=== PATIENT | female | born 1950 | race Caucasian/White ===

== ENCOUNTER 2024-05-16 14:12 | Outpatient (CLI) | payer MEDICARE, SELFPAY ==
--- NOTE | ~2024-05-16 | XR_ITS ---
EXAMINATION: XR knee RT 3V DATE: 05/16/2024 16:00 INDICATION: Right knee pain. TECHNIQUE: 3 views of right knee were obtained. COMPARISON: None. FINDINGS: Alignment is normal. No fracture. There is mild osteoarthritis of medial and patellofemoral compartments. No knee joint effusion. IMPRESSION: 1. Mild right knee osteoarthritis. Reviewed, dictated and finalized at location B. IGHT EDGER
== END 2024-05-16 14:13 | disposition home or self-care (01) ==
LOC: GOSHIMG 14:13
PROVIDERS: PCP Nurse Practitioner; Visit Provider Nurse Practitioner
DX: M17.11 Unilateral primary osteoarthritis, right knee (principal)
CPT/HCPCS: 73562

== ENCOUNTER 2024-07-02 10:00 | Outpatient (CLI) | payer MEDICARE, SELFPAY ==
--- NOTE | ~2024-07-02 | US_ITS ---
EXAMINATION: US thyroid DATE: 07/02/2024 10:14 INDICATION: Hypothyroidism, unspecified. TECHNIQUE: Multiple ultrasound images of the thyroid were obtained. COMPARISON: None. FINDINGS: The right thyroid lobe measures 5.1 x 2.3 x 1.8 cm. The left thyroid lobe measures 4.7 x 2.4 x 2.4 c m. The thyroid demonstrates heterogeneous echogenicity and increased vascularity. In the left thyroi d lobe, there is a 2.1 cm solid, isoechoic, wider than tall nodule with ill-defined margin without ec hogenic foci (TI-RADS TR3). In the thyroid isthmus, there is a 10 mm solid, hypoechoic, wider than ta ll nodule with ill-defined margin without echogenic foci (TR4). In the right thyroid lobe, there is a 10 mm mixed cystic and solid, isoechoic, wider than tall nodule with smooth margin without echogenic foci (TR2). In the right thyroid lobe, there is a 14 mm solid, isoechoic, wider than tall nodule wit h ill-defined margin without echogenic foci (TR3). IMPRESSION: 1. Multinodular goiter. Thyroid ultrasound is recommended in one year. 2. Heterogeneous, hypervascular thyroid, consistent with chronic lymphocytic (Jenny) thyroiditis. Reviewed, dictated and finalized at location B. IMPRESSION: 1. Multinodular goiter. Thyroid ultrasound is recommended in one year. 2. Heterogeneous, hypervascular thyroid, consistent with chronic lymphocytic (H ashimoto) thyroiditis.
== END 2024-07-02 10:01 | disposition home or self-care (01) ==
LOC: GOSHIMG 10:00
PROVIDERS: PCP Nurse Practitioner; Visit Provider Nurse Practitioner
DX: E04.2 Nontoxic multinodular goiter (principal); E03.9 Hypothyroidism, unspecified
CPT/HCPCS: 76536

== ENCOUNTER 2024-10-09 13:14 | Emergency (ER) | payer MEDICARE, SELFPAY ==
--- NOTE | 2024-10-09 13:15 | ED.SKABFB ---
HPI - Skin/Abscess/Foreign Bdy General Chief complaint: Skin/Abscess/Foreign Body Stated complaint: Bee Sting Source: patient and RN notes reviewed Mode of arrival: ambulatory Limitations: no limitations History of Present Illness HPI narrative: Patient is a 74-year-old female who presents to the [facility] with complaints of bee or wasp sting to her right hand. Patient states that she was gardening with glove when she was done by either a bee or wasp and hour and a half ago. She states that she has been stung before on her neck and had swelling to her neck and face, so she wanted to get checked out. She denies trouble swallowing, trouble breathing or any shortness of breath at this time. She states that she took a Benadryl, ibuprofen, and applied baking soda to this day prior to [facility] arrival. She reports tenderness to the area of the sting that extends from the right hand to the right forearm. She has full range of motion of her right hand. She is neurovascularly intact. Related Data Home Medications ?Medication ?Instructions ?Recorded ?Confirmed ?Last Taken ?Type hydrochlorothiazide 12.5 mg tablet 12.5 mg PO DAILY 01/09/21 10/09/24 Unknown History cholecalciferol (vitamin D3) 25 25 mcg PO DAILY 09/24/21 10/09/24 Unknown History mcg (1,000 unit) capsule multivitamin 1 tablet PO DAILY 09/24/21 10/09/24 Unknown History Allergies Allergy/AdvReac Type Severity Reaction Status Date / Time neomycin Allergy Unknown WORSENS Verified 10/09/24 13:15 AREA OF INFECTION dextromethorphan AdvReac Unknown NASAL Verified 10/09/24 13:15 CONGESTION doxylamine AdvReac Unknown NASAL Verified 10/09/24 13:15 CONGESTION guaifenesin AdvReac Unknown NASAL Verified 10/09/24 13:15 SWELLING levofloxacin AdvReac Unknown SEVERE Verified 10/09/24 13:15 MOUTH DRYNESS, WON'T TAKE LEVAQUIN loratadine AdvReac Unknown SINUS Verified 10/09/24 13:15 SWELLING Review of Systems Review of Systems: CONSTITUTIONAL: Denies fever, chills, or sweats. EYES: Denies visual changes, redness, or discharge. ENT: Denies otalgia and sore throat CARDIOVASCULAR: Denies chest pain, palpitations, or edema. RESPIRATORY: Denies cough or dyspnea. GASTROINTESTINAL: Denies abdominal pain, nausea, vomiting, or diarrhea. GENITOURINARY: Denies dysuria or hematuria. SKIN: Sting to right hand with surrounding swelling. MUSCULOSKELETAL: Reports right hand pain. NEUROLOGIC: Denies headache, numbness, or weakness. Pertinent positives per HPI. [facility] Past Medical History Medical History Menopausal and perimenopausal disorder Ureteropelvic junction obstruction Hepatitis C antibody test negative (~03/22/20) Surgical History Surgical History H/O parotidectomy H/O breast biopsy Status post placement of ureteral stent H/O adenoidectomy History of tonsillectomy Family History Family History Grandparent Family history of glaucoma Family history of malignant neoplasm Family history of coronary artery disease Family history of Parkinson's disease Mother Hypertension Family history of elevated blood lipids Family history of malignant neoplasm of kidney Father Family history of Parkinson's disease Other Carcinoma of colon Family history of malignant neoplasm of breast No family history of cardiovascular disease Social History Social History Smoking status: Never smoker Alcohol intake: current Substance use: never Substance use type: does not use Lack of Transportation: No Lack of Food: Never True Current Housing: I Have Housing Concerned About Future Housing: No Difficulty Paying Gas/Electric Bills: No Difficulty Paying for Meds: No Currently Unemployed: No Education: Associate Degree Difficulty w/ Childcare or Family Care: No Living arrangements: with family Occupation/Education: retired Gender identity (if verbalized by the patient): Female Agree to blood products: Yes Comments At the time of my signature, I reviewed and agree with the nursing past medical, surgical, social, and family history. There is no relevant family history pertinent to the patient complaint. Exam Narrative: GENERAL: This is a well-nourished, well-developed patient, in no apparent distress. HEAD: normocephalic, atraumatic. EYES: Sclera clear/white. Vision is grossly intact. EARS: External ears normal. Hearing grossly intact. NOSE: External nose normal with no obvious nasal discharge, nares without redness, no rhinorrhea. THROAT: Mucous membranes moist, posterior pharynx clear. NECK: Neck supple, non-tender without lymphadenopathy, masses or thyromegaly. CARDIOVASCULAR: Regular rate and rhythm without murmurs, gallops, or rubs. RESPIRATORY: Clear to auscultation. Breath sounds equal bilaterally. No wheezes, rales, or rhonchi. GASTROINTESTINAL: Abdomen soft, non-tender, nondistended. Bowel sounds are active. No hepato-splenomegaly, or palpable masses. No guarding. SKIN: Reports sting to right thumb. Localized reaction noted to the right thumb and right hand with mild swelling. Full range of motion of the right thumb and hand. Distal neurovascular and motor status intact. NEURO: awake, alert, and oriented to person, place and time. There were no obvious focal neurologic abnormalities. Course Course Level of Care: Express Care Visit Vital Signs Vital signs: Vital Signs Temperature 98.4 F 10/09/24 13:21 Pulse Rate 84 10/09/24 13:21 Respiratory Rate 18 10/09/24 13:21 Blood Pressure 169/80 H 10/09/24 13:21 Pulse Oximetry 99 10/09/24 13:21 Oxygen Delivery Room Air 10/09/24 13:21 Temperature 98.4 F 10/09/24 13:21 Pulse Rate 84 10/09/24 13:21 Respiratory Rate 18 10/09/24 13:21 Blood Pressure 169/80 H 10/09/24 13:21 Pulse Oximetry 99 10/09/24 13:21 Oxygen Delivery Room Air 10/09/24 13:21 Reviewed MDM - Skin/Abscess/Foreign Bdy MDM Narrative Medical decision making narrative: Avoid scratching the affected area, clean with soap and water only. Watch for sign of skin infection include but not limited to redness, swollen, severe pain or fever to seek evaluation. Please schedule a followup visit with your personal physician for further evaluation and treatment or If your symptoms persist, change or worsen significantly before you can contact your personal physician then please, without delay, go to the emergency department for further evaluation Differential Diagnosis Differential diagnosis: Likely cellulitis, insect bites and contact dermatitis Critical Care Time Critical Care Time Critical Care Time: No Discharge Plan Discharge Clinical Impression: Insect bite of hand with local reaction Patient Disposition: Home Condition: Stable Instructions: Insect Bite or Sting (ED) Additional Instructions: Avoid scratching the affected area, clean with soap and water only. Watch for sign of skin infection include but not limited to redness, swollen, severe pain or fever to seek evaluation. Please schedule a followup visit with your personal physician for further evaluation and treatment or If your symptoms persist, change or worsen significantly before you can contact your personal physician then please, without delay, go to the emergency department for further evaluation. Patient Language: Polish Prescriptions: New prednisone 50 mg tablet 50 mg PO DAILY 5 Days Qty: 5 0RF No Action hydrochlorothiazide 12.5 mg tablet 12.5 mg PO DAILY cholecalciferol (vitamin D3) 25 mcg (1,000 unit) capsule 25 mcg PO DAILY Rx Instructions: 1-2 per day multivitamin Tablet 1 tablet PO DAILY simvastatin 10 mg tablet 10 mg PO DAILY Qty: 90 1RF Follow-up/Referrals: PHYSICIAN,W[employer]ER AND [employer] MACHINE OPERATOR [Primary Care Provider] - Time of Disposition: 13:39
[2024-10-09 13:21] VITALS: BP 169/80; PULSE 84; RESP 18; TEMP 36.9; O2SAT 99
[2024-10-09] MEDS: methylPREDNISolone SOD SUCC 125 MG VIAL 80 MG IM (13:31)
== END 2024-10-09 13:45 | disposition home or self-care (01) ==
PROVIDERS: Emergency Provider Nurse Practitioner
DX: T63.481A Toxic effect of venom of other arthropod, accidental (unintentional), initial encounter (principal)
CPT/HCPCS: 96372; 99213; G0463; J2919